=== PATIENT | male | born 1945 | race Caucasian/White ===

== ENCOUNTER → 2024-06-12 | Day surgery (SDC) | payer OTHER | LOC: ER/OP 06:45 | PROVIDERS: ATTEND Radiology Vascular & Interventional Radiology | DX: Z23 Encounter for immunization (principal) ==

== ENCOUNTER 2024-07-23 22:55 | Inpatient (IN) | payer MEDICARE ==
[2024-07-24] MEDS ORDERED: Acetaminophen 650 MG Suppository PR PRN (08:29)
[2024-07-24] MEDS ORDERED: Ipratropium/Albuterol 3 ML NEB NEB PRN (08:33)
[2024-07-24 09:08] LABS: Magnesium 2.2 mg/dL (1.6-2.6)
[2024-07-24] MEDS ORDERED: Albuterol 2.5 MG (3 mL) NEB EZPAP PRN (10:04)
[2024-07-24 10:13] VITALS: BMI 22.6
[2024-07-24] MEDS ORDERED: Ipratropium/Albuterol 3 ML NEB ONE ×2 (10:36→14:31)
[2024-07-24] MEDS: Ipratropium/Albuterol 3 ML NEB NEB SCH (10:40)
[2024-07-24] MEDS ORDERED: predniSONE 20 MG TAB ONE (11:40)
[2024-07-24] MEDS ORDERED: Azithromycin 500 MG VIAL ONE (11:41)
[2024-07-24] MEDS ORDERED: Sodium Chloride 0.9% 100 ML ONE (11:41)
[2024-07-24] MEDS ORDERED: cefTRIAXone (ROCEPHIN) 1 GM VIAL ONE (11:41)
[2024-07-24] MEDS: predniSONE 20 MG TAB PO SCH (11:51)
[2024-07-24] MEDS: cefTRIAXone\\ROCEPHIN 1 GM in Sodium Chloride 0.9% 100 ML IVPB SCH (11:51)
[2024-07-24 13:15] LABS: Troponin I 1.581 ng/mL (< 0.028)
[2024-07-24] MEDS: Azithromycin 500 MG in Sodium Chloride 0.9% 250 ML 250 ML IVPB SCH (14:00)
[2024-07-24] MEDS: Pantoprazole DR 40 MG TAB PO SCH (14:00)
[2024-07-24] MEDS ORDERED: Pantoprazole DR 40 MG TAB ONE (14:05)
[2024-07-24] MEDS: Furosemide 40 MG (4 mL) VIAL SLOW IVP SCH (17:00)
[2024-07-24] MEDS: Levothyroxine 175 MCG TAB PO SCH (17:00)
[2024-07-24] MEDS ORDERED: Furosemide 40 MG (4 mL) VIAL ONE (17:11)
[2024-07-24] MEDS: Acetaminophen 325 MG TAB PO PRN (18:19)
[2024-07-24] MEDS: Gabapentin 100 MG CAP PO SCH (19:26)
[2024-07-24] MEDS ORDERED: Ondansetron PF 4 MG/2 ML Vial IVP PRN (19:44)
[2024-07-24] MEDS: Ondansetron ODT 4 MG TAB PO PRN (21:25)
[2024-07-24] MEDS: Lidocaine 4% Patch TD PRN (21:25)
[2024-07-25 04:11] LABS: #Basophils 0.03 10x3/uL (0.0-0.2); #Eosinophils Less than 0.03 10x3/uL (0.0-0.7); %Basophils 0.3 % (0.0-1.0); %Lymphocytes 4.9 % (21.0-51.0); %Monocytes 5.6 % (0.0-10.0); %Neutrophils 88.1 % (42.0-75.0); Hematocrit 40.8 % (42.0-52.0); Mean Corpuscular HGB CONC 34.3 g/dL (32.0-36.0); Mean Corpuscular Hemoglobin 32.3 pg (27.0-31.0); Mean Corpuscular Volume 94.2 fL (78.0-98.0); Mean Platelet Volume 10.2 fL (7.4-10.4); Platelet Count 227 10x3/uL (130-400); RBC Distribution Width 13.5 % (11.5-14.5); Red Blood Cell (RBC) Count 4.33 mill/uL (4.70-6.10)
[2024-07-25 04:53] LABS: Anion Gap 17 mmol/L (10-20); BUN (Urea Nitrogen) 21 mg/dL (8.4-25.7); Calc. Creatinine Clearance 27 mL/min (70-130); Calcium 9.3 mg/dL (7.8-10.44); Carbon Dioxide 18 mmol/L (23-31); Chloride 110 mmol/L (98-107); Estimated GFR 31; Glucose 129 mg/dL (83-110); Potassium 4.3 mmol/L (3.5-5.1); Sodium 141 mmol/L (136-145)
[2024-07-25 05:51] LABS: Ferritin 252.34 ng/mL (22-322); Thyroid Stimulating Hormone 1.8437 uIU/mL (0.35-4.94)
[2024-07-25] MEDS: Levothyroxine 175 MCG TAB PO SCH (06:54)
[2024-07-25] MEDS: predniSONE 20 MG TAB PO SCH (08:23)
[2024-07-25] MEDS: Amlodipine 10 MG TAB PO SCH (08:23)
[2024-07-25] MEDS: Atorvastatin Calcium 40 MG TAB PO SCH (08:23)
[2024-07-25] MEDS: Tamsulosin HCl 0.4 MG CAP PO SCH (08:23)
[2024-07-25] MEDS: Aspirin 81 mg Enteric Coated Tablet PO SCH (08:23)
[2024-07-25] MEDS: HYDROcodone/Acetaminophen 5/325 mg Tablet PO PRN (08:24)
[2024-07-25] MEDS: Transdermal Patch Removal TOP SCH (08:26)
[2024-07-25 12:07] VITALS: BMI 22.6
[2024-07-25] MEDS: Ipratropium/Albuterol 3 ML NEB NEB SCH (12:45)
[2024-07-25 17:19] LABS: Actual Bicarbonate (HCO3a) 21.2 mEq/L (22-28); Base Excess (BEa) -2.6 mEq/L (-2.0 to +3.0); CO2 Tension 34.2 mmHg (35.0-45.0); Calcium, Ionized (arterial) 1.25 mmol/L (1.12-1.30); Carboxyhemoglobin (COHb) 1.1 gm% (0.0-3.0); Hematocrit-ABG 44 % (42.0-52.0); Potassium - ABG Lab 3.45 mmol/L (3.70-5.30); pH, Arterial 7.411 (7.35-7.45)
[2024-07-25 17:23] LABS: O2 Tension (PaO2), arterial 41.7 mmHg (> 70.0); Puncture Site Right Radial artery
[2024-07-25 19:05] LABS: Influenza A by NAA Not Detected (NotDetected); Influenza B by NAA Not Detected (NotDetected); SARS-CoV-2 NAA Rapid Test Not Detected (NotDetected)
[2024-07-25] MEDS ORDERED: Heparin 25,000 units/D5W 500 ML IVPB SCH (20:45)
[2024-07-25] MEDS ORDERED: Heparin 10,000 UNITS/ 10 ML VIAL SLOW IVP SCH (20:45)
[2024-07-25] MEDS ORDERED: DOPamine 400 MG/D5W 250 ML 250 ML IVPB SCH (20:45)
[2024-07-25 20:59] LABS: Hematocrit 40.7 % (42.0-52.0); Hemoglobin 13.7 g/dL (14.0-18.0); Platelet Count 276 10x3/uL (130-400)
[2024-07-25 20:59] LABS: Actual Bicarbonate (HCO3a) 16.9 mEq/L (22-28); Base Excess (BEa) -5.5 mEq/L (-2.0 to +3.0); CO2 Tension 25.6 mmHg (35.0-45.0); Calcium, Ionized (arterial) 1.18 mmol/L (1.12-1.30); Hematocrit-ABG 43 % (42.0-52.0); Hemoglobin (Hb) 14.5 g/dL (14.0-18.0); Potassium - ABG Lab 3.75 mmol/L (3.70-5.30); pH, Arterial 7.437 (7.35-7.45)
[2024-07-25] MEDS ORDERED: Heparin 5,000 UNITS/ML VIAL SC SCH (21:00)
[2024-07-25] MEDS ORDERED: Doxycycline 100 MG CAP PO SCH (21:00)
[2024-07-25] MEDS ORDERED: Aspirin 325 mg Enteric Coated Tablet PO SCH (21:00)
[2024-07-25 21:02] LABS: O2 Tension (PaO2), arterial 57.6 mmHg (> 70.0); Puncture Site Right Radial artery
[2024-07-25] MEDS ORDERED: Midazolam HCl 2 mg/2 ml Vial ONE (21:05)
[2024-07-25] MEDS ORDERED: Heparin 10,000 UNITS/ 10 ML VIAL ONE (21:05)
[2024-07-25] MEDS ORDERED: Nitroglycerin 50 MG/250 ML BOT 0 ML ONE (21:05)
[2024-07-25] MEDS ORDERED: fentaNYL 50 mcg/mL 1 mL Vial ONE (21:05)
[2024-07-25 21:41] LABS: #Basophils 0.04 10x3/uL (0.0-0.2); #Eosinophils Less than 0.03 10x3/uL (0.0-0.7); %Basophils 0.2 % (0.0-1.0); %Lymphocytes 3.1 % (21.0-51.0); %Monocytes 4.4 % (0.0-10.0); %Neutrophils 91.2 % (42.0-75.0); Mean Corpuscular HGB CONC 34.5 g/dL (32.0-36.0); Mean Corpuscular Hemoglobin 32.3 pg (27.0-31.0); Mean Corpuscular Volume 93.7 fL (78.0-98.0); Mean Platelet Volume 10.6 fL (7.4-10.4)
[2024-07-25 22:00] LABS: Lactic Acid 5.05 mmol/L (0.5-2.2); Troponin I 5.076 ng/mL (< 0.028)
[2024-07-25 22:12] VITALS: BP 80/61
[2024-07-25] MEDS: Lorazepam 2 MG/ML VIAL SLOW IVP PRN (22:14)
[2024-07-25] MEDS: Morphine 4 MG/ML VIAL SLOW IVP PRN (22:14)
[2024-07-25] MEDS: Aspirin 81 mg Enteric Coated Tablet ONE (22:42)
[2024-07-26 00:18] LABS: ALT (SGPT) 32 U/L (8-55); AST (SGOT) 58 U/L (5-34); Albumin 3.3 g/dL (3.4-4.8); Alkaline Phosphatase 147 U/L (40-110); Anion Gap 23 mmol/L (10-20); BUN (Urea Nitrogen) 30 mg/dL (8.4-25.7); Bilirubin, Total 0.5 mg/dL (0.2-1.2); Calc. Creatinine Clearance 20 mL/min (70-130); Calcium 9.4 mg/dL (7.8-10.44); Carbon Dioxide 15 mmol/L (23-31); Chloride 105 mmol/L (98-107); Estimated GFR 21; Globulin 3.5 g/dL (2.4-3.5); Glucose 221 mg/dL (83-110); Magnesium 2.3 mg/dL (1.6-2.6); Potassium 3.4 mmol/L (3.5-5.1); Protein, Total 6.8 g/dL (5.8-8.1); Sodium 140 mmol/L (136-145)
[2024-07-26 04:18] VITALS: TEMP 97.6
[2024-07-26] MEDS ORDERED: FLU (Fluad Triv) TS24-25 (65UP)/MF59C/PF 45 MCG/0.5 ML Syringe IM ONE (09:00)
== END 2024-07-26 05:29 | disposition expired ==
LOC: ERHOLD 07-24 05:25 → OBSVTOIN 07-24 08:29 → 2NO 07-24 17:47 → CCU 07-25 21:37
PROVIDERS: ADMIT Internal Medicine; ATTEND Internal Medicine
PROC: 4A023N7 Measurement of Cardiac Sampling and Pressure, Left Heart, Percutaneous Approach (ICD-10-PCS; principal; 2024-07-24)
PROC: B2151ZZ Fluoroscopy of Left Heart using Low Osmolar Contrast (ICD-10-PCS; 2024-07-24)
PROC: B2111ZZ Fluoroscopy of Multiple Coronary Arteries using Low Osmolar Contrast (ICD-10-PCS; 2024-07-24)
PROC: 3E03329 Introduction of Other Anti-infective into Peripheral Vein, Percutaneous Approach (ICD-10-PCS; 2024-07-24)
PROC: 4A133R1 Monitoring of Arterial Saturation, Peripheral, Percutaneous Approach (ICD-10-PCS; 2024-07-25)
DX: I13.0 Hypertensive heart and chronic kidney disease with heart failure and stage 1 through stage 4 chronic kidney disease, or unspecified chronic kidney disease (principal); I50.23 Acute on chronic systolic (congestive) heart failure; I21.3 ST elevation (STEMI) myocardial infarction of unspecified site; J96.21 Acute and chronic respiratory failure with hypoxia; J44.1 Chronic obstructive pulmonary disease with (acute) exacerbation; I44.2 Atrioventricular block, complete; E87.22 Chronic metabolic acidosis; Z51.5 Encounter for palliative care; Z66 Do not resuscitate; E78.5 Hyperlipidemia, unspecified; N40.0 Benign prostatic hyperplasia without lower urinary tract symptoms; E87.70 Fluid overload, unspecified; E03.9 Hypothyroidism, unspecified; I95.9 Hypotension, unspecified; I21.4 Non-ST elevation (NSTEMI) myocardial infarction; N18.9 Chronic kidney disease, unspecified; R57.0 Cardiogenic shock; Z79.899 Other long term (current) drug therapy; Z79.890 Hormone replacement therapy; Z95.818 Presence of other cardiac implants and grafts; Z87.891 Personal history of nicotine dependence
CPT/HCPCS: 36415; 36416; 36600; 71045; 80048; 80053; 82728; 82805; 83605; 83735; 83880; 84145; 84443; 84484; 85025; 85730; 87633; 93005; 93010; 93306; 94640; 96374; J0456; J0696; J1644; J1650; J1940; J2060; J2250; J2272; J3010; J7050; J7512; J7620; Q0162